=== PATIENT | male | born 1950 | race Caucasian/White ===

== ENCOUNTER → 2020-03-05 08:58 | Outpatient (CLI) | payer MEDICARE, OTHER, SELFPAY ==
[2020-03-08 08:40] LABS: COVID19 Sendout Not Detected (Not Detect)
== END ==
PROVIDERS: PCP Internal Medicine; Visit Provider Physician Assistant
DX: Z01.812 Encounter for preprocedural laboratory examination (principal)
CPT/HCPCS: 87635

== ENCOUNTER 2020-03-08 08:06 | Day surgery (SDC) | payer MEDICARE, OTHER, SELFPAY ==
[2020-03-08] VITALS (7 sets, daily range): BP systolic 134–152; BP diastolic 69–84; PULSE 55–70; RESP 12–20; TEMP 36.2–37.7; O2SAT 95–100; BMI 22.1
--- NOTE | 2020-03-08 | PATH_ITS ---
[facility] Accession Number: [id number] . 01 Material submitted: . cecum - CECAL POLYP . 01 Clinical history: . A: POLYP X3 . 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 Additional levels were examined. [facility] 03/10/2020 1348 Local . 02 Electronically signed: . Amy Cheney MD, Pathologist NPI- [id number] . 01 Gross description: . CECAL POLYP: Received in formalin are 3 fragment(s) of omrataya, soft tissue measuring 0.3 x 0.2 x 0.1 cm to 0.2 x 0.2 x 0.2 cm submitted entirely in 1 cassette(s) /QBJ 03/09/2020 0221 Local . 02 Pathologist provided ICD-10: D12.0 . 02 CPT . 347540 Performed at: 01 [facility] [address] [facility], [place], [place] [id number] MD Rui Weinstein MD Phone: [phone] Performed at: 02 [facility] [place] [address] [place], [place] [id number] MD Amy Cheney MD Phone: [phone]
[2020-03-08] MEDS: LACTATED RINGERS 1,000 ML 200 ML IV (08:47)
--- NOTE | 2020-03-08 09:09 | PM.HP.1 ---
History of Present Illness History of Present Illness Date Patient Seen: 03/08/20 Time Patient Seen: 09:17 Chief complaint: [id number] Narrative: The patient presents for colorectal sreening. The previous colonoscopy 10 years ago which was normal. No personal or family history of colon cancer. On further history denies any recent gastrointestinal symptoms. No nausea, vomiting, abdominal pain, loss of appetite, unexplained weight loss, change in bowel habits, diarrhea, constipation, melena, hematochezia, or bright red blood per rectum. Patient History Medical History COPD (chronic obstructive pulmonary disease) (Inactive) Diabetes (Inactive) Surgical History H/O umbilical hernia repair (Acute) Family & Social History Social History: household members spouse Tobacco & Substance use: Tobacco type cigarettes Smoking Status Former smoker alcohol intake current alcohol intake frequency holiday/special occasion Substance Use Type does not use Meds Home Medications and Allergies Home Medications Medication Instructions Recorded Confirmed Type albuterol sulfate 0.63 mg INHALATION Q4H PRN 03/08/20 03/08/20 History atorvastatin 40 mg PO DAILY 03/08/20 03/08/20 History budesonide-formoterol [Symbicort] 2 puff INHALATION DAILY PRN 03/08/20 03/08/20 History dulaglutide [Trulicity] 1.5 mg SUBCUT QWEEK 03/08/20 03/08/20 History fluticasone propion-salmeterol 1 inh INHALATION DAILY 03/08/20 03/08/20 History [Advair Diskus] fluticasone propionate [Flonase 1 spray INTRANASAL DAILY 03/08/20 03/08/20 History Allergy Relief] lisinopril 10 mg PO DAILY 03/08/20 03/08/20 History metformin 1,000 mg PO BID 03/08/20 03/08/20 History Allergies Allergy/AdvReac Type Severity Reaction Status Date / Time No Known Drug Allergies Allergy Verified 03/08/20 08:36 Review of Systems Review of Systems Narrative: A 10 point review of systems is negative except as noted in the HPI Exam Vital Signs (past 8 hours): - 03/08/20 08:40 Temperature 97.2 F L Pulse Rate 67 Respiratory Rate 18 Blood Pressure 152/84 H Pulse Oximetry 96 Oxygen Delivery Method Room Air Narrative Exam Narrative: General-no acute distress, well nourished HEENT-moist mucous membranes, no scleral icterus Neck-supple, no lymphadenopathy Chest- non labored respirations, clear to auscultation bilaterally Cardiac-regular rate no peripheral edema Abdomen-soft, nontender, non distended Extremities-warm, well perfused Neurological-alert and oriented, no focal deficits Assessment & Plan Assessment and plan (1) Screening for colon cancer: Status: Acute Assessment & Plan narrative: The patient requires colorectal screening and colonoscopy is recommended. Technical details were discussed. Risks, benefits, alternatives explained. Risks including but not limited to myocardial infarction, aspiration, bleeding, pain, missed lesion, incomplete examination, need for further radiographic studies, colonic perforation, and need for major abdominal surgery were discussed. All questions were answered to their satisfaction, and they are in agreement with this plan. COVID-19 COVID-19 status: Negative Result date/Date tested (Pos, Neg/Pending): 03/05/20
[2020-03-08] MEDS: MIDAZOLAM 5 MG/5 ML VIAL IV (09:41)
[2020-03-08] MEDS: fentaNYL 250 MCG/5 ML INJ IV (09:41)
--- NOTE | 2020-03-08 09:42 | PM.OP.ENDO ---
Operative Date/Time/Diagnoses Date of procedure: 03/08/20 Time of procedure: 09:42 Pre-op diagnosis: Screening colonoscopy Post-op diagnosis: same Procedure & Clinicians Study performed: Colonoscopy Same procedure as scheduled: Yes Indications: This 69-year-old man last colonoscopy 10 years ago presents for routine screening Surgeon: Lenard Archuleta Procedure Notes SCOAP/Timeout: Performed Procedure in detail: Patient placed in left lateral decubitus position. Time out was performed. Procedural sedation was administered with Versed and Fentanyl. A rectal exam demonstrated no external hemorrhoids no internal masses. Colonoscopy scope was placed into the rectum and advanced through the colon to the cecum. The ileocecal valve was identified. The scope was then slowly withdrawn examining colon thoroughly in all directions. The colonoscopy was notable for the following 1. Three sets of 1 cm benign appearing polyps within the cecum which were removed with biopsy forceps hemostasis was observed. 2. Sigmoid diverticulosis 3. Quality of prep fair Scope withdrawal time: 10 Sedation minutes: 23 Findings: diverticulosis and polyp Specimen(s): other (Cecal polyps) Complications: none Impression: Cecal polyps Post-procedure Recommendations: Colonscopy in 10 years Disposition: same day surgery
== END 2020-03-08 10:38 | disposition home or self-care (01) ==
PROVIDERS: PCP Internal Medicine; Referring Provider Surgery; Visit Provider Surgery
PROC: 0DJD8ZZ Inspection of Lower Intestinal Tract, Via Natural or Artificial Opening Endoscopic (ICD-10-PCS; CPT 45378; principal; 2020-03-08 09:15)
DX: Z12.11 Encounter for screening for malignant neoplasm of colon (principal); K57.30 Diverticulosis of large intestine without perforation or abscess without bleeding; D12.0 Benign neoplasm of cecum
CPT/HCPCS: 45380; 99152; J2250; J3010